=== PATIENT | female | born 1995 | race Caucasian/White ===

== ENCOUNTER 2020-04-13 06:12 | Observation (INO) ==
[2020-04-13] MEDS ORDERED: Isovue-370 500 ML BOTTLE IVP ONE (06:29)
[2020-04-13] MEDS ORDERED: Ondansetron 4 MG/2 ML VIAL IVP ONE (06:29)
[2020-04-13] MEDS ORDERED: *HR* FentaNYL (PF) 100 MCG/2 ML VIAL IVP ONE (06:29)
[2020-04-13 06:58] LABS: Basophils # 0.1 K/mcL (0.0-0.2); Basophils % 0.7 %; Eosinophils # 0.2 K/mcL (0.0-0.6); Eosinophils % 2.3 %; Hematocrit 38.3 % (35.3-44.9); Hemoglobin 13.1 g/dL (11.5-15.4); Immature Granulocytes % 0.3 % (0-4); Lymphocytes # 0.7 K/mcL (0.6-4.6); Lymphocytes % 10.2 %; Mean Corpuscular HGB Conc 34.2 g/dL (31.6-35.5); Mean Corpuscular Hemoglobin 33.9 pg (28.0-33.3); Mean Corpuscular Volume 99.2 fL (83.0-100.0); Mean Platelet Volume 9.1 fL (9.4-12.4); Monocytes # 0.4 K/mcL (0.0-1.3); Neutrophils # 5.7 K/mcL (1.6-8.9); Platelet Count 341 K/mcL (140-400); Red Blood Count 3.86 M/mcL (3.82-4.97); Red Cell Distribution Width 12.1 % (11.5-14.5); Segmented Neutrophils % 81.5 %
[2020-04-13 07:22] LABS: Alanine Aminotransferase 340 Units/L (7-52); Albumin 4.6 g/dL (3.5-5.7); Alkaline Phosphatase 89 Units/L (34-104); Aspartate Amino Transferase 546 Units/L (13-39); BUN/Creatinine Ratio 11 (6-26); Bilirubin,Direct 0.2 mg/dL (0.0-0.2); Bilirubin,Indirect 0.6 mg/dL (0.0-1.0); Bilirubin,Total 0.8 mg/dL (0.3-1.0); Blood Urea Nitrogen 9 mg/dL (6-20); Calcium 9.2 mg/dL (8.6-10.3); Carbon Dioxide 25 mEq/L (23-29); Chloride 107 mEq/L (98-107); Globulin 2.3 g/dL (2.4-3.5); Glucose 93 mg/dL (70-105); Lipase 11 Units/L (11-82); Osmolality,Calculated 290 (280-300); Potassium 3.4 mEq/L (3.5-5.1); Sodium 141 mEq/L (136-145); Total Protein 6.9 g/dL (6.4-8.9); eGFR For African Americans > 60 (> 60); eGFR For Non-African Americans > 60 (> 60)
[2020-04-13 08:02] LABS: Acetaminophen < 10 mcg/mL (10-20)
[2020-04-13 09:05] LABS: Bilirubin,Urine Negative (Negative); Blood,Urine Negative (Negative); Clarity,Urine Turbid (Clear); Color,Urine Yellow (Yellow); Glucose,Urine (UA) Normal (Normal); Ketones,Urine 40 mg/dL (Negative); Leukocyte Esterase,Urine Negative (Negative); Mucus,Urine Few per lpf (None-Few); Nitrite,Urine Negative (Negative); Protein,Urine 30 mg/dL (Neg-Trace); RBC,Urine 0-3 per hpf (0-3); Squamous Epithelial Cell,Urine Few per hpf (None-Few); Urobilinogen,Urine >=8.0 mg/dL (Normal); WBC,Urine 0-3 per hpf (0-3)
[2020-04-13] MEDS ORDERED: Haloperidol Lactate 5 MG/ML VIAL IVP ONE (09:12)
[2020-04-13] MEDS ORDERED: 0.9 % Sodium Chloride 1,000 ML IVC ONE (09:53)
[2020-04-13 10:31] LABS: INR 1.2; Prothrombin Time 14.3 Seconds (9.4-12.1)
[2020-04-13] MEDS ORDERED: *HR* HYDROcodone/Acet 5/325 mg TABLET PO PRN (11:07)
[2020-04-13] MEDS ORDERED: Ibuprofen 400 MG TABLET PO PRN (11:07)
[2020-04-13] MEDS ORDERED: Melatonin 3 MG TABLET PO PRN (11:07)
[2020-04-13] MEDS ORDERED: Naloxone 0.4 MG/ML INJ IVP PRN (11:07)
[2020-04-13] MEDS ORDERED: Ondansetron 4 MG/2 ML VIAL IVP PRN (11:07)
[2020-04-13] MEDS ORDERED: 0.9 % Sodium Chloride 1,000 ML IVC SCH (11:15)
[2020-04-13 11:24] LABS: Hepatitis B Surface Antigen Nonreactive (Nonreactive)
[2020-04-13 11:32] VITALS: BP 109/75
[2020-04-13 11:52] LABS: Hepatitis C Virus Antibody Nonreactive (Nonreactive)
[2020-04-13 11:53] LABS: Hepatitis B Core IgM Nonreactive (Nonreactive)
[2020-04-13 11:54] LABS: Hepatitis A Antibody IgM Nonreactive (Nonreactive)
== END 2020-04-13 11:40 | disposition left against medical advice (07) ==
LOC: EMEROOARM 06:12 → CDU 06:12
PROVIDERS: ADMIT Internal Medicine; ATTEND Internal Medicine